=== PATIENT | female | born 1950 | race Caucasian/White ===

== ENCOUNTER 2019-09-26 15:49 | Inpatient (IN) ==
[2019-09-26 16:46] LABS: Basophils % 0.3 %; Eosinophils % 0.1 %; Hematocrit 44.1 % (35.3-44.9); Hemoglobin 14.6 g/dL (11.5-15.4); Immature Granulocytes % 0.7 % (0-4); Lymphocytes # 0.7 K/mcL (0.6-4.6); Lymphocytes % 5.2 %; Mean Corpuscular HGB Conc 33.1 g/dL (31.6-35.5); Mean Corpuscular Hemoglobin 27.5 pg (28.0-33.3); Mean Corpuscular Volume 83.1 fL (83.0-100.0); Mean Platelet Volume 11.2 fL (9.4-12.4); Monocytes # 1.4 K/mcL (0.0-1.3); Monocytes % 10.5 %; Neutrophils # 11.3 K/mcL (1.6-8.9); Platelet Count 264 K/mcL (140-400); Red Blood Count 5.31 M/mcL (3.82-4.97); Red Cell Distribution Width 15.8 % (11.5-14.5); Segmented Neutrophils % 83.2 %; White Blood Count 13.6 K/mcL (4.3-11.1)
[2019-09-26 17:07] LABS: BUN/Creatinine Ratio 29 (6-26); Blood Urea Nitrogen 31 mg/dL (8-23); Calcium 9.3 mg/dL (8.6-10.3); Carbon Dioxide 21 mEq/L (23-29); Chloride 103 mEq/L (98-107); Creatine Kinase 165 Units/L (30-223); Glucose 88 mg/dL (70-105); Osmolality,Calculated 286 (280-300); Potassium 3.8 mEq/L (3.5-5.1); Sodium 135 mEq/L (136-145); eGFR For African Americans > 60 (> 60); eGFR For Non-African Americans 51 (> 60)
[2019-09-26] MEDS ORDERED: 0.9 % Sodium Chloride 1,000 ML IVC ONE (17:50)
[2019-09-26] MEDS ORDERED: Isovue-370 500 ML BOTTLE IVP ONE (19:06)
[2019-09-26 22:16] LABS: INR 1.8; Prothrombin Time 20.5 Seconds (9.4-12.1)
[2019-09-26] MEDS ORDERED: Heparin 25,000 UNIT/250 ML D5W 25,000 UNIT/250 ML IV.SOLN IVC SCH (23:45)
[2019-09-26] MEDS ORDERED: *HR* Heparin 5,000 UNIT/ML VIAL IVP ONE (23:49)
[2019-09-26] MEDS ORDERED: *HR* Heparin 5,000 UNIT/ML VIAL IVP PRN ×2 (23:49)
[2019-09-27] MEDS ORDERED: traMADol 50 MG TABLET PO ONE (00:58)
[2019-09-27] MEDS ORDERED: Ondansetron 4 MG/2 ML VIAL IVP PRN (00:58)
[2019-09-27] MEDS ORDERED: *HR* Warfarin 3 MG TABLET PO ONE (01:30)
[2019-09-27 04:20] LABS: Prothrombin Time 22.5 Seconds (9.4-12.1)
[2019-09-27] MEDS: Furosemide 40 MG TABLET PO SCH (07:56)
[2019-09-27] MEDS ORDERED: Diltiazem CD (24hr) 240 MG CAPSULE PO SCH (09:00)
[2019-09-27] MEDS ORDERED: *HR* Heparin 5,000 UNIT/ML VIAL IVP ONE (09:45)
[2019-09-27 10:26] LABS: Hematocrit 39.7 % (35.3-44.9); Mean Corpuscular Hemoglobin 27.5 pg (28.0-33.3); Mean Corpuscular Volume 86.1 fL (83.0-100.0); Mean Platelet Volume 11.1 fL (9.4-12.4); Platelet Count 248 K/mcL (140-400); Red Blood Count 4.61 M/mcL (3.82-4.97); Red Cell Distribution Width 15.9 % (11.5-14.5); White Blood Count 11.4 K/mcL (4.3-11.1)
[2019-09-27 10:27] LABS: Hemoglobin 12.7 g/dL (11.5-15.4)
[2019-09-27 10:32] LABS: INR 1.9; Prothrombin Time 21.9 Seconds (9.4-12.1)
[2019-09-27 10:34] LABS: Heparin anti-factor XA UFH 0.49 IU/mL (0.30-0.70); INR 1.9; Prothrombin Time 21.4 Seconds (9.4-12.1)
[2019-09-27] MEDS ORDERED: cefTRIAXone 1,000 MG in Water for inj. (sterile) 10 ML IVP SCH (13:31)
[2019-09-27 14:13] LABS: Source,Synovial Fluid LEFT KNEE
[2019-09-27 15:20] LABS: Color,Synovial Fluid Amber (Straw)
[2019-09-27 15:21] LABS: Appearance,Synovial Fluid Hazy (Clear-Hazy)
[2019-09-27] MEDS: Heparin 25,000 UNIT/250 ML D5W 25,000 UNIT/250 ML IV.SOLN IVC SCH (15:21)
[2019-09-27] MEDS ORDERED: *HR* Warfarin 5 MG TABLET PO ONE (18:00)
[2019-09-27] MEDS ORDERED: Warfarin perPT PO PRN (18:00)
[2019-09-28 01:16] LABS: Prothrombin Time 22.7 Seconds (9.4-12.1)
[2019-09-28] MEDS: Acetaminophen 325 MG TABLET PO PRN (02:59)
[2019-09-28] MEDS: Heparin 25,000 UNIT/250 ML D5W 25,000 UNIT/250 ML IV.SOLN IVC SCH ×2 (06:03→21:32)
[2019-09-28] MEDS: cefTRIAXone 2,000 MG in Water for inj. (sterile) 20 ML IVP SCH (08:18)
[2019-09-28] MEDS: Furosemide 40 MG TABLET PO SCH (08:18)
[2019-09-28 09:01] LABS: Basophils # 0.1 K/mcL (0.0-0.2); Basophils % 0.5 %; Eosinophils # 0.1 K/mcL (0.0-0.6); Eosinophils % 0.4 %; Hematocrit 38.7 % (35.3-44.9); Immature Granulocytes % 1.5 % (0-4); Lymphocytes % 7.7 %; Mean Corpuscular HGB Conc 33.6 g/dL (31.6-35.5); Mean Corpuscular Volume 83.4 fL (83.0-100.0); Monocytes # 1.4 K/mcL (0.0-1.3); Monocytes % 11.3 %; Neutrophils # 9.8 K/mcL (1.6-8.9); Platelet Count 262 K/mcL (140-400); Red Blood Count 4.64 M/mcL (3.82-4.97); Red Cell Distribution Width 15.9 % (11.5-14.5); Segmented Neutrophils % 78.6 %; White Blood Count 12.5 K/mcL (4.3-11.1)
[2019-09-28 09:25] LABS: BUN/Creatinine Ratio 22 (6-26); Blood Urea Nitrogen 19 mg/dL (8-23); Calcium 8.6 mg/dL (8.6-10.3); Carbon Dioxide 24 mEq/L (23-29); Chloride 103 mEq/L (98-107); Glucose 93 mg/dL (70-105); Osmolality,Calculated 282 (280-300); Potassium 3.4 mEq/L (3.5-5.1); Sodium 135 mEq/L (136-145); eGFR For African Americans > 60 (> 60); eGFR For Non-African Americans > 60 (> 60)
[2019-09-28] MEDS ORDERED: Diltiazem CD (24hr) 240 MG CAPSULE PO SCH (13:28)
[2019-09-28] MEDS ORDERED: *HR* Warfarin 5 MG TABLET PO ONE ×2 (18:00)
[2019-09-29] MEDS: Acetaminophen 325 MG TABLET PO PRN ×3 (03:08→20:35)
[2019-09-29 05:13] LABS: Basophils # 0.1 K/mcL (0.0-0.2); Basophils % 0.6 %; Eosinophils % 0.2 %; Hematocrit 36.6 % (35.3-44.9); Hemoglobin 12.3 g/dL (11.5-15.4); Immature Granulocytes % 2.1 % (0-4); Lymphocytes # 1.4 K/mcL (0.6-4.6); Lymphocytes % 9.6 %; Mean Corpuscular HGB Conc 33.6 g/dL (31.6-35.5); Mean Corpuscular Hemoglobin 27.8 pg (28.0-33.3); Mean Corpuscular Volume 82.6 fL (83.0-100.0); Mean Platelet Volume 11.8 fL (9.4-12.4); Monocytes # 1.5 K/mcL (0.0-1.3); Monocytes % 10.6 %; Neutrophils # 11.2 K/mcL (1.6-8.9); Platelet Count 276 K/mcL (140-400); Red Blood Count 4.43 M/mcL (3.82-4.97); Red Cell Distribution Width 15.8 % (11.5-14.5); Segmented Neutrophils % 76.9 %; White Blood Count 14.5 K/mcL (4.3-11.1)
[2019-09-29 05:16] LABS: INR 1.7; Prothrombin Time 19.6 Seconds (9.4-12.1)
[2019-09-29] MEDS ORDERED: *HR* Heparin 5,000 UNIT/ML VIAL IVP PRN ×2 (05:28)
[2019-09-29 05:34] LABS: BUN/Creatinine Ratio 22 (6-26); Blood Urea Nitrogen 18 mg/dL (8-23); Calcium 8.4 mg/dL (8.6-10.3); Carbon Dioxide 22 mEq/L (23-29); Chloride 103 mEq/L (98-107); Glucose 92 mg/dL (70-105); Osmolality,Calculated 280 (280-300); Potassium 3.6 mEq/L (3.5-5.1); Sodium 134 mEq/L (136-145); eGFR For African Americans > 60 (> 60); eGFR For Non-African Americans > 60 (> 60)
[2019-09-29] MEDS: Heparin 25,000 UNIT/250 ML D5W 25,000 UNIT/250 ML IV.SOLN IVC SCH ×2 (06:10→17:30)
[2019-09-29 06:46] LABS: Hematocrit 36.2 % (35.3-44.9); Hemoglobin 12.2 g/dL (11.5-15.4); Immature Platelets 6.7 % (1.1-6.1); Mean Corpuscular HGB Conc 33.7 g/dL (31.6-35.5); Mean Corpuscular Hemoglobin 27.8 pg (28.0-33.3); Mean Corpuscular Volume 82.5 fL (83.0-100.0); Mean Platelet Volume 11.3 fL (9.4-12.4); Red Blood Count 4.39 M/mcL (3.82-4.97); Red Cell Distribution Width 15.8 % (11.5-14.5); White Blood Count 13.5 K/mcL (4.3-11.1)
[2019-09-29] MEDS: cefTRIAXone 2,000 MG in Water for inj. (sterile) 20 ML IVP SCH (09:36)
[2019-09-29] MEDS: Furosemide 40 MG TABLET PO SCH (09:36)
[2019-09-29] MEDS: Diltiazem CD (24hr) 180 MG CAPSULE PO SCH (09:37)
[2019-09-29] MEDS ORDERED: *HR* Warfarin 4 MG TABLET PO SCH (18:00)
[2019-09-30 02:52] LABS: Basophils # 0.1 K/mcL (0.0-0.2); Basophils % 0.7 %; Eosinophils # 0.2 K/mcL (0.0-0.6); Eosinophils % 1.2 %; Hematocrit 40.4 % (35.3-44.9); Hemoglobin 13.1 g/dL (11.5-15.4); Immature Granulocytes % 3.2 % (0-4); Lymphocytes # 1.3 K/mcL (0.6-4.6); Lymphocytes % 10.2 %; Mean Corpuscular HGB Conc 32.4 g/dL (31.6-35.5); Mean Corpuscular Hemoglobin 27.3 pg (28.0-33.3); Mean Corpuscular Volume 84.2 fL (83.0-100.0); Mean Platelet Volume 13.4 fL (9.4-12.4); Monocytes # 1.3 K/mcL (0.0-1.3); Monocytes % 9.9 %; Neutrophils # 9.7 K/mcL (1.6-8.9); Platelet Count 189 K/mcL (140-400); Red Cell Distribution Width 15.9 % (11.5-14.5); Segmented Neutrophils % 74.8 %; White Blood Count 12.9 K/mcL (4.3-11.1)
[2019-09-30 02:59] LABS: INR 1.8
[2019-09-30 03:13] LABS: BUN/Creatinine Ratio 23 (6-26); Blood Urea Nitrogen 19 mg/dL (8-23); Calcium 8.6 mg/dL (8.6-10.3); Carbon Dioxide 23 mEq/L (23-29); Chloride 105 mEq/L (98-107); Glucose 92 mg/dL (70-105); Osmolality,Calculated 284 (280-300); Potassium 3.7 mEq/L (3.5-5.1); Sodium 136 mEq/L (136-145); eGFR For African Americans > 60 (> 60); eGFR For Non-African Americans > 60 (> 60)
[2019-09-30] MEDS: Heparin 25,000 UNIT/250 ML D5W 25,000 UNIT/250 ML IV.SOLN IVC SCH ×3 (05:21→22:04)
[2019-09-30] MEDS: Furosemide 40 MG TABLET PO SCH (08:35)
[2019-09-30] MEDS: Acetaminophen 325 MG TABLET PO PRN ×2 (08:35→18:04)
[2019-09-30] MEDS: Diltiazem CD (24hr) 180 MG CAPSULE PO SCH (08:35)
[2019-09-30] MEDS: cefTRIAXone 2,000 MG in Water for inj. (sterile) 20 ML IVP SCH (08:36)
[2019-09-30] MEDS ORDERED: *HR* Warfarin 3 MG TABLET PO ONE (18:00)
[2019-09-30] MEDS ORDERED: Acetaminophen IV 1,000 MG/100 ML INFUS..BTL IVPB ONE (22:03)
[2019-09-30] MEDS ORDERED: Aminoglycoside Consult 1 EACH MC ONE (22:45)
[2019-10-01 02:38] LABS: BUN/Creatinine Ratio 25 (6-26); Blood Urea Nitrogen 20 mg/dL (8-23); Calcium 8.6 mg/dL (8.6-10.3); Carbon Dioxide 25 mEq/L (23-29); Chloride 105 mEq/L (98-107); Glucose 113 mg/dL (70-105); Osmolality,Calculated 289 (280-300); Potassium 3.6 mEq/L (3.5-5.1); Sodium 138 mEq/L (136-145); eGFR For African Americans > 60 (> 60); eGFR For Non-African Americans > 60 (> 60)
[2019-10-01 02:52] LABS: INR 2.5; Prothrombin Time 28.3 Seconds (9.4-12.1)
[2019-10-01 04:07] LABS: Basophils # 0.1 K/mcL (0.0-0.2); Basophils % 0.7 %; Eosinophils # 0.2 K/mcL (0.0-0.6); Eosinophils % 1.8 %; Hemoglobin 12.4 g/dL (11.5-15.4); Lymphocytes # 1.6 K/mcL (0.6-4.6); Lymphocytes % 14.7 %; Mean Corpuscular HGB Conc 33.5 g/dL (31.6-35.5); Mean Corpuscular Hemoglobin 27.6 pg (28.0-33.3); Mean Corpuscular Volume 82.2 fL (83.0-100.0); Mean Platelet Volume 12.2 fL (9.4-12.4); Monocytes # 1.1 K/mcL (0.0-1.3); Monocytes % 9.8 %; Neutrophils # 7.7 K/mcL (1.6-8.9); Platelet Count 336 K/mcL (140-400); Red Cell Distribution Width 15.7 % (11.5-14.5); White Blood Count 11.2 K/mcL (4.3-11.1)
[2019-10-01 04:44] LABS: Platelet Estimate Normal (Normal)
[2019-10-01] MEDS: Heparin 25,000 UNIT/250 ML D5W 25,000 UNIT/250 ML IV.SOLN IVC SCH (05:22)
[2019-10-01] MEDS ORDERED: Acetaminophen IV 1,000 MG/100 ML INFUS..BTL IVPB ONE ×3 (08:09→18:30)
[2019-10-01] MEDS: cefTRIAXone 2,000 MG in Water for inj. (sterile) 20 ML IVP SCH (09:26)
[2019-10-01] MEDS: Diltiazem CD (24hr) 180 MG CAPSULE PO SCH (09:27)
[2019-10-01] MEDS: Furosemide 40 MG TABLET PO SCH (09:28)
[2019-10-01] MEDS ORDERED: *HR* Warfarin 2.5 MG TABLET PO ONE (18:00)
[2019-10-01 20:41] VITALS: BP 106/71
== END 2019-10-01 22:46 | disposition short-term general hospital (02) | DRG 560 ==
LOC: EMEROOARM 15:49 → 2NENU 15:49 → SUATTDRO 23:50 → 2NENU 09-27 00:58 → SUATTDRO 09-27 14:19
PROVIDERS: ADMIT Internal Medicine; ATTEND Family Medicine

== ENCOUNTER 2020-08-07 10:36 | Inpatient (IN) ==
[2020-08-07 11:11] LABS: Basophils % 0.4 %; Eosinophils # 0.4 K/mcL (0.0-0.6); Eosinophils % 4.3 %; Hematocrit 25.4 % (35.3-44.9); Hemoglobin 7.1 g/dL (11.5-15.4); Immature Granulocytes % 1.1 % (0-4); Lymphocytes % 10.6 %; Mean Corpuscular Hemoglobin 20.4 pg (28.0-33.3); Mean Platelet Volume 9.7 fL (9.4-12.4); Monocytes # 0.7 K/mcL (0.0-1.3); Monocytes % 7.6 %; Platelet Count 348 K/mcL (140-400); Red Blood Count 3.48 M/mcL (3.82-4.97); Red Cell Distribution Width 20.6 % (11.5-14.5); White Blood Count 9.7 K/mcL (4.3-11.1)
[2020-08-07 11:15] LABS: Neutrophils # 7.4 K/mcL (1.6-8.9)
[2020-08-07 11:25] LABS: INR 2.8; Prothrombin Time 31.3 Seconds (9.4-12.1)
[2020-08-07 11:31] LABS: Alanine Aminotransferase 8 Units/L (7-52); Albumin 3.3 g/dL (3.5-5.7); Alkaline Phosphatase 69 Units/L (34-104); Aspartate Amino Transferase 14 Units/L (13-39); BUN/Creatinine Ratio 19 (6-26); Bilirubin,Indirect 0.6 mg/dL (0.0-1.0); Bilirubin,Total 0.6 mg/dL (0.3-1.0); Blood Urea Nitrogen 18 mg/dL (8-23); Calcium 8.8 mg/dL (8.6-10.3); Carbon Dioxide 30 mEq/L (23-29); Chloride 104 mEq/L (98-107); Globulin 3.3 g/dL (2.4-3.5); Glucose 115 mg/dL (70-105); Osmolality,Calculated 293 (280-300); Potassium 3.6 mEq/L (3.5-5.1); Sodium 140 mEq/L (136-145); Total Protein 6.6 g/dL (6.4-8.9); Troponin I < 0.03 ng/mL (< 0.04); eGFR For African Americans > 60 (> 60); eGFR For Non-African Americans 59 (> 60)
[2020-08-07 11:34] LABS: Anisocytosis 1+ (Not Present); Hypochromasia Present (Not Present); Polychromasia 1+ (Not Present)
[2020-08-07 11:35] LABS: Large Platelets Present (Not Present); Platelet Estimate Normal (Normal)
[2020-08-07 11:36] LABS: Macrocytosis Present (Not Present); Microcytosis Present (Not Present)
[2020-08-07] MEDS ORDERED: Naloxone 0.4 MG/ML INJ IVP PRN (13:40)
[2020-08-07] MEDS ORDERED: Ondansetron ODT 4 MG TAB.RAPDIS SL PRN (13:50)
[2020-08-07] MEDS ORDERED: *HR* Labetalol 20 MG/4 ML SYRINGE IVP ONE (14:05)
[2020-08-07] MEDS ORDERED: 0.9 % Sodium Chloride 500 ML ONE (14:53)
[2020-08-07] MEDS ORDERED: 0.9 % Sodium Chloride 1,000 ML IV ONE (15:49)
[2020-08-07] MEDS ORDERED: Vancomycin 2,000 MG/520 ML IV.SOLN IVPB ONE (16:30)
[2020-08-07] MEDS ORDERED: 0.9 % Sodium Chloride 250 ML IVC SCH (17:15)
[2020-08-07] MEDS: Piperacillin/Tazobactam 3.375 GM in 0.9 % Sodium Chloride Mini Bag 100 ML IVPB SCH (17:48)
[2020-08-07 18:51] LABS: Hematocrit 26.9 % (35.3-44.9); Hemoglobin 7.5 g/dL (11.5-15.4)
[2020-08-07] MEDS: Acetaminophen 325 MG TABLET PO PRN (19:56)
[2020-08-08 00:44] LABS: INR 2.4; Prothrombin Time 27.1 Seconds (9.4-12.1)
[2020-08-08 00:45] LABS: Red Cell Distribution Width 20.3 % (11.5-14.5)
[2020-08-08 00:46] LABS: Hematocrit 28.3 % (35.3-44.9); Mean Corpuscular HGB Conc 28.3 g/dL (31.6-35.5); Mean Corpuscular Hemoglobin 20.9 pg (28.0-33.3); Mean Corpuscular Volume 73.9 fL (83.0-100.0); Platelet Count 324 K/mcL (140-400); Red Blood Count 3.83 M/mcL (3.82-4.97); White Blood Count 8.5 K/mcL (4.3-11.1)
[2020-08-08 00:47] LABS: Activated Partial Thrombo Time 33.3 Seconds (26.0-36.0)
[2020-08-08 01:07] LABS: BUN/Creatinine Ratio 19 (6-26); Blood Urea Nitrogen 16 mg/dL (8-23); Calcium 8.2 mg/dL (8.6-10.3); Carbon Dioxide 27 mEq/L (23-29); Chloride 107 mEq/L (98-107); Glucose 142 mg/dL (70-105); Osmolality,Calculated 296 (280-300); Potassium 3.4 mEq/L (3.5-5.1); Sodium 141 mEq/L (136-145); eGFR For African Americans > 60 (> 60); eGFR For Non-African Americans > 60 (> 60)
[2020-08-08] MEDS: Piperacillin/Tazobactam 3.375 GM in 0.9 % Sodium Chloride Mini Bag 100 ML IVPB SCH ×2 (03:15→08:25)
[2020-08-08] MEDS: Acetaminophen 325 MG TABLET PO PRN ×2 (04:51→13:15)
[2020-08-08] MEDS ORDERED: Vancomycin 2,000 MG/520 ML IV.SOLN IVPB SCH (05:00)
[2020-08-08] MEDS ORDERED: DilTIAZem CD (24hr) 240 MG CAP.ER.24H PO SCH (09:00)
[2020-08-08] MEDS ORDERED: CefTRIAXone 2,000 MG VIAL IVP SCH (12:00)
[2020-08-08] MEDS ORDERED: cefTRIAXone 2,000 MG in Water for inj. (sterile) 20 ML IVP SCH (13:00)
[2020-08-08] MEDS ORDERED: DAPTOmycin 500 MG VIAL IVP SCH (18:00)
[2020-08-08] MEDS ORDERED: DAPTOmycin 900 MG in 0.9 % Sodium Chloride 100 ML IVPB SCH (18:00)
[2020-08-08] MEDS ORDERED: *HR* Enoxaparin 30 MG/0.3 ML SYRINGE SQ ONE (18:00)
[2020-08-08] MEDS ORDERED: NON-FORMULARY MEDICATION 1 EACH EACH (Simvastatin [Zocor] 10 MG) PO SCH (18:00)
[2020-08-08] MEDS ORDERED: polyethylene glycoL 3350 17 GM POWD.PACK PO PRN (18:18)
[2020-08-08] MEDS: Sennosides/Docusate Sodium TABLET PO SCH (20:49)
[2020-08-09 02:48] LABS: Basophils % 0.3 %; Mean Platelet Volume 9.9 fL (9.4-12.4)
[2020-08-09 02:49] LABS: Eosinophils # 0.7 K/mcL (0.0-0.6); Eosinophils % 8.3 %; Hematocrit 30.1 % (35.3-44.9); Hemoglobin 8.6 g/dL (11.5-15.4); Immature Granulocytes % 0.7 % (0-4); Lymphocytes # 1.3 K/mcL (0.6-4.6); Lymphocytes % 14.5 %; Mean Corpuscular HGB Conc 28.6 g/dL (31.6-35.5); Mean Corpuscular Hemoglobin 21.1 pg (28.0-33.3); Monocytes # 0.7 K/mcL (0.0-1.3); Monocytes % 7.6 %; Neutrophils # 5.9 K/mcL (1.6-8.9); Nucleated Red Blood Cells 1.7 /100 WBC (0); Platelet Count 338 K/mcL (140-400); Red Blood Count 4.07 M/mcL (3.82-4.97); Red Cell Distribution Width 20.5 % (11.5-14.5); Segmented Neutrophils % 68.6 %; White Blood Count 8.6 K/mcL (4.3-11.1)
[2020-08-09 03:10] LABS: % Iron Saturation 4 % (15-50); BUN/Creatinine Ratio 19 (6-26); Blood Urea Nitrogen 15 mg/dL (8-23); Calcium 8.7 mg/dL (8.6-10.3); Carbon Dioxide 26 mEq/L (23-29); Chloride 108 mEq/L (98-107); Glucose 96 mg/dL (70-105); Iron 19 mcg/dL (50-170); Osmolality,Calculated 291 (280-300); Potassium 3.6 mEq/L (3.5-5.1); Sodium 140 mEq/L (136-145); Transferrin 332 mg/dL (203-362); eGFR For African Americans > 60 (> 60); eGFR For Non-African Americans > 60 (> 60)
[2020-08-09 03:29] LABS: Ferritin 10 ng/mL (10-120)
[2020-08-09 03:36] LABS: Hypochromasia Present (Not Present); Polychromasia 1+ (Not Present)
[2020-08-09 03:37] LABS: Anisocytosis 2+ (Not Present); Large Platelets Present (Not Present); Platelet Estimate Normal (Normal); Poikilocytosis 1+ (Not Present)
[2020-08-09 07:42] VITALS: BP 119/77
[2020-08-09] MEDS ORDERED: *HR* Enoxaparin 150 MG/ML SYRINGE SQ SCH (08:00)
[2020-08-09] MEDS: Sennosides/Docusate Sodium TABLET PO SCH (08:40)
[2020-08-09 08:45] LABS: INR 1.8; Prothrombin Time 20.3 Seconds (9.4-12.1)
[2020-08-09] MEDS: Acetaminophen 325 MG TABLET PO PRN (08:48)
[2020-08-09] MEDS ORDERED: Loratadine 10 MG TABLET PO SCH (09:00)
[2020-08-09] MEDS ORDERED: Furosemide 40 MG TABLET PO SCH (09:00)
== END 2020-08-09 11:19 | DRG 811 ==
LOC: EMEROOARM 10:36 → 3BNU 10:36 → SUATTDRO 11:57 → 3BNU 12:25
PROVIDERS: ADMIT Internal Medicine; ATTEND Internal Medicine

== ENCOUNTER 2021-08-22 06:30 | Inpatient (IN) ==
[2021-08-22] MEDS ORDERED: Pantoprazole 80 MG in 0.9 % Sodium Chloride 50 ML IVPB ONE (06:47)
[2021-08-22] MEDS ORDERED: 0.9 % Sodium Chloride 500 ML ONE (06:51)
[2021-08-22 07:02] LABS: Basophils % 0.3 %; Eosinophils % 0.1 %; Hematocrit 29.5 % (35.3-44.9); Hemoglobin 8.4 g/dL (11.5-15.4); Immature Granulocytes % 0.8 % (0-4); Lymphocytes # 0.8 K/mcL (0.6-4.6); Lymphocytes % 7.3 %; Mean Corpuscular HGB Conc 28.5 g/dL (31.6-35.5); Mean Corpuscular Hemoglobin 20.9 pg (28.0-33.3); Mean Corpuscular Volume 73.6 fL (83.0-100.0); Mean Platelet Volume 9.7 fL (9.4-12.4); Nucleated Red Blood Cells 0.2 /100 WBC (0); Platelet Count 374 K/mcL (140-400); Red Blood Count 4.01 M/mcL (3.82-4.97); Red Cell Distribution Width 18.3 % (11.5-14.5); Segmented Neutrophils % 88.5 %; White Blood Count 11.5 K/mcL (4.3-11.1)
[2021-08-22 07:03] LABS: Monocytes # 0.4 K/mcL (0.0-1.3); Neutrophils # 10.2 K/mcL (1.6-8.9)
[2021-08-22 07:22] LABS: Potassium 4.9 mEq/L (3.5-5.1)
[2021-08-22 07:41] LABS: INR 5.8; Prothrombin Time 63.6 Seconds (9.4-12.1)
[2021-08-22] MEDS ORDERED: Pantoprazole 40 MG VIAL ONE (07:45)
[2021-08-22] MEDS: Pantoprazole 40 MG in 0.9 % Sodium Chloride Mini Bag 100 ML IVC SCH ×4 (07:54→22:36)
[2021-08-22] MEDS ORDERED: Naloxone 0.4 MG/ML INJ IVP PRN (08:40)
[2021-08-22] MEDS ORDERED: Octreotide 50 MCG/ML INJ IVP ONE (11:55)
[2021-08-22] MEDS ORDERED: Amiodarone Premix 360 MG/200 ML BAG IVC ONE (12:02)
[2021-08-22] MEDS ORDERED: Amiodarone Premix 150 MG/100 ML BAG IVPB ONE (12:02)
[2021-08-22 14:12] LABS: Hematocrit 33.3 % (35.3-44.9)
[2021-08-22 14:24] LABS: Alanine Aminotransferase 4 Units/L (7-52); Albumin 3.4 g/dL (3.5-5.7); Albumin/Globulin Ratio 1.2 (1.1-2.2); Alkaline Phosphatase 68 Units/L (34-104); Aspartate Amino Transferase 15 Units/L (13-39); BUN/Creatinine Ratio 50 (6-26); Bilirubin,Direct 0.1 mg/dL (0.0-0.2); Bilirubin,Indirect 0.6 mg/dL (0.0-1.0); Bilirubin,Total 0.7 mg/dL (0.3-1.0); Blood Urea Nitrogen 51 mg/dL (8-23); Calcium 8.9 mg/dL (8.6-10.3); Carbon Dioxide 22 mEq/L (23-29); Chloride 111 mEq/L (98-107); Globulin 2.8 g/dL (2.4-3.5); Glucose 90 mg/dL (70-105); INR 5.2; Osmolality,Calculated 305 (280-300); Potassium 4.6 mEq/L (3.5-5.1); Prothrombin Time 56.8 Seconds (9.4-12.1); Sodium 141 mEq/L (136-145); Total Protein 6.2 g/dL (6.4-8.9); eGFR For African Americans > 60 (> 60); eGFR For Non-African Americans 53 (> 60)
[2021-08-22] MEDS ORDERED: 0.9 % Sodium Chloride 250 ML ONE (14:57)
[2021-08-22] MEDS: Ondansetron 4 MG/2 ML VIAL IVP PRN (15:31)
[2021-08-22] MEDS: *HR* Metoprolol 5 MG/5 ML VIAL IVP PRN ×2 (16:05→23:59)
[2021-08-22] MEDS: Amiodarone Premix 360 MG/200 ML BAG IVC SCH (18:41)
[2021-08-22 19:41] LABS: Hematocrit 29.1 % (35.3-44.9); Hemoglobin 8.6 g/dL (11.5-15.4)
[2021-08-22 19:49] LABS: INR 3.1; Prothrombin Time 33.8 Seconds (9.4-12.1)
[2021-08-23 02:45] LABS: Hematocrit 29.8 % (35.3-44.9); Hemoglobin 8.8 g/dL (11.5-15.4)
[2021-08-23 02:54] LABS: INR 3.4; Prothrombin Time 38.1 Seconds (9.4-12.1)
[2021-08-23 02:55] LABS: Alanine Aminotransferase 5 Units/L (7-52); Albumin 3.4 g/dL (3.5-5.7); Albumin/Globulin Ratio 1.4 (1.1-2.2); Alkaline Phosphatase 65 Units/L (34-104); Aspartate Amino Transferase 14 Units/L (13-39); BUN/Creatinine Ratio 44 (6-26); Bilirubin,Direct 0.1 mg/dL (0.0-0.2); Bilirubin,Indirect 0.5 mg/dL (0.0-1.0); Bilirubin,Total 0.6 mg/dL (0.3-1.0); Blood Urea Nitrogen 42 mg/dL (8-23); Calcium 8.6 mg/dL (8.6-10.3); Carbon Dioxide 24 mEq/L (23-29); Chloride 113 mEq/L (98-107); Globulin 2.5 g/dL (2.4-3.5); Glucose 87 mg/dL (70-105); Osmolality,Calculated 306 (280-300); Sodium 143 mEq/L (136-145); Total Protein 5.9 g/dL (6.4-8.9); eGFR For African Americans > 60 (> 60); eGFR For Non-African Americans 57 (> 60)
[2021-08-23 04:23] LABS: Magnesium 1.9 mg/dL (1.6-2.6); Phosphorous 2.9 mg/dL (2.7-4.5)
[2021-08-23] MEDS: Pantoprazole 40 MG in 0.9 % Sodium Chloride Mini Bag 100 ML IVC SCH ×4 (04:29→20:02)
[2021-08-23 05:48] LABS: Basophils % 0.4 %; Eosinophils # 0.2 K/mcL (0.0-0.6); Eosinophils % 1.9 %; Hematocrit 29.8 % (35.3-44.9); Hemoglobin 8.8 g/dL (11.5-15.4); Immature Granulocytes % 0.5 % (0-4); Lymphocytes # 1.3 K/mcL (0.6-4.6); Lymphocytes % 13.3 %; Mean Corpuscular HGB Conc 29.5 g/dL (31.6-35.5); Mean Corpuscular Hemoglobin 23.6 pg (28.0-33.3); Mean Corpuscular Volume 79.9 fL (83.0-100.0); Mean Platelet Volume 10.2 fL (9.4-12.4); Monocytes # 0.9 K/mcL (0.0-1.3); Monocytes % 8.8 %; Neutrophils # 7.2 K/mcL (1.6-8.9); Platelet Count 295 K/mcL (140-400); Red Blood Count 3.73 M/mcL (3.82-4.97); Red Cell Distribution Width 21.1 % (11.5-14.5); Segmented Neutrophils % 75.1 %; White Blood Count 9.6 K/mcL (4.3-11.1)
[2021-08-23] MEDS: Amiodarone Premix 360 MG/200 ML BAG IVC SCH ×3 (06:08→20:01)
[2021-08-23] MEDS: Ondansetron 4 MG/2 ML VIAL IVP PRN (09:28)
[2021-08-23 10:18] LABS: Hematocrit 30.1 % (35.3-44.9)
[2021-08-23] MEDS ORDERED: D5% in 0.45% NACL 1,000 ML IVC SCH ×2 (12:15→13:21)
[2021-08-23] MEDS ORDERED: Ondansetron 4 MG/2 ML VIAL IVP PRN (13:21)
[2021-08-23] MEDS ORDERED: *HR* Metoprolol 5 MG/5 ML VIAL IVP PRN (13:21)
[2021-08-23] MEDS ORDERED: Naloxone 0.4 MG/ML INJ IVP PRN (13:21)
[2021-08-23] MEDS ORDERED: Lidocaine -MPF 2% 5 ML VIAL SQ ONE (14:26)
[2021-08-23] MEDS ORDERED: *HR* Propofol 200 MG/20 ML VIAL IVP ONE (14:26)
[2021-08-23 17:38] LABS: Hematocrit 26.8 % (35.3-44.9); Hemoglobin 8.3 g/dL (11.5-15.4)
[2021-08-24 01:39] LABS: Basophils % 0.2 %; Eosinophils # 0.3 K/mcL (0.0-0.6); Eosinophils % 3.4 %; Hematocrit 28.6 % (35.3-44.9); Hemoglobin 8.3 g/dL (11.5-15.4); Immature Granulocytes % 0.4 % (0-4); Lymphocytes # 0.9 K/mcL (0.6-4.6); Lymphocytes % 10.4 %; Mean Corpuscular Hemoglobin 22.9 pg (28.0-33.3); Mean Platelet Volume 10.2 fL (9.4-12.4); Monocytes # 0.6 K/mcL (0.0-1.3); Monocytes % 7.4 %; Neutrophils # 6.6 K/mcL (1.6-8.9); Platelet Count 278 K/mcL (140-400); Red Blood Count 3.62 M/mcL (3.82-4.97); Red Cell Distribution Width 20.9 % (11.5-14.5); Segmented Neutrophils % 78.2 %; White Blood Count 8.5 K/mcL (4.3-11.1)
[2021-08-24] MEDS ORDERED: Morphine Sulfate 2 MG/ML SYRINGE IVP PRN (01:54)
[2021-08-24 02:02] LABS: Alanine Aminotransferase 6 Units/L (7-52); Albumin 3.2 g/dL (3.5-5.7); Albumin/Globulin Ratio 1.3 (1.1-2.2); Alkaline Phosphatase 61 Units/L (34-104); Aspartate Amino Transferase 14 Units/L (13-39); BUN/Creatinine Ratio 32 (6-26); Bilirubin,Direct 0.2 mg/dL (0.0-0.2); Bilirubin,Indirect 0.5 mg/dL (0.0-1.0); Bilirubin,Total 0.7 mg/dL (0.3-1.0); Blood Urea Nitrogen 24 mg/dL (8-23); Calcium 8.4 mg/dL (8.6-10.3); Carbon Dioxide 24 mEq/L (23-29); Chloride 111 mEq/L (98-107); Globulin 2.4 g/dL (2.4-3.5); Glucose 77 mg/dL (70-105); Osmolality,Calculated 297 (280-300); Potassium 3.8 mEq/L (3.5-5.1); Sodium 142 mEq/L (136-145); Total Protein 5.6 g/dL (6.4-8.9); eGFR For African Americans > 60 (> 60); eGFR For Non-African Americans > 60 (> 60)
[2021-08-24] MEDS: Pantoprazole 40 MG in 0.9 % Sodium Chloride Mini Bag 100 ML IVC SCH ×4 (02:57→20:28)
[2021-08-24 03:49] LABS: Bacteria,Urine Few per hpf (None-Few); Bilirubin,Urine Negative (Negative); Blood,Urine Large (Negative); Clarity,Urine Turbid (Clear); Color,Urine Light-Orange (Yellow); Glucose,Urine (UA) Normal (Normal); Ketones,Urine Trace mg/dL (Negative); Leukocyte Esterase,Urine Large (Negative); Mucus,Urine Few per lpf (None-Few); Nitrite,Urine Positive (Negative); PH,Urine 8.5 pH Units (5.0-8.0); Protein,Urine 100 mg/dL (Neg-Trace); RBC,Urine TNTC per hpf (0-3); Specific Gravity,Urine 1.026 (1.010-1.025); Squamous Epithelial Cell,Urine Few per hpf (None-Few); Urobilinogen,Urine Normal (Normal); WBC,Urine 50-100 per hpf (0-3)
[2021-08-24] MEDS: Ertapenem 1,000 MG in 0.9 % Sodium Chloride Mini Bag 100 ML IVPB SCH (06:52)
[2021-08-24 07:02] LABS: Hematocrit 27.6 % (35.3-44.9); Hemoglobin 8.2 g/dL (11.5-15.4)
[2021-08-24] MEDS: Amiodarone Premix 360 MG/200 ML BAG IVC SCH (10:13)
[2021-08-24 10:19] LABS: INR 3.9
[2021-08-24] MEDS ORDERED: *HR* Enoxaparin 120 MG/0.8 ML SYRINGE SQ SCH (10:30)
[2021-08-24] MEDS: DilTIAZem CD (24hr) 240 MG CAP.ER.24H PO SCH (11:18)
[2021-08-24] MEDS ORDERED: Nitroglycerin 0.4 MG TAB.SUBL SL PRN (14:10)
[2021-08-24] MEDS ORDERED: Warfarin perPT PO PRN (18:00)
[2021-08-24] MEDS: Doxycycline 100 MG CAPSULE PO SCH (20:08)
[2021-08-25] MEDS: Pantoprazole 40 MG in 0.9 % Sodium Chloride Mini Bag 100 ML IVC SCH ×5 (00:38→11:03)
[2021-08-25] MEDS: Ertapenem 1,000 MG in 0.9 % Sodium Chloride Mini Bag 100 ML IVPB SCH (05:47)
[2021-08-25 06:23] LABS: Basophils % 0.3 %; Eosinophils # 0.3 K/mcL (0.0-0.6); Eosinophils % 5.2 %; Hematocrit 29.6 % (35.3-44.9); Hemoglobin 8.8 g/dL (11.5-15.4); Immature Granulocytes % 0.3 % (0-4); Lymphocytes # 0.9 K/mcL (0.6-4.6); Lymphocytes % 14.6 %; Mean Corpuscular HGB Conc 29.7 g/dL (31.6-35.5); Mean Corpuscular Hemoglobin 23.3 pg (28.0-33.3); Mean Corpuscular Volume 78.5 fL (83.0-100.0); Monocytes # 0.6 K/mcL (0.0-1.3); Monocytes % 9.3 %; Neutrophils # 4.5 K/mcL (1.6-8.9); Platelet Count 307 K/mcL (140-400); Red Blood Count 3.77 M/mcL (3.82-4.97); Red Cell Distribution Width 20.7 % (11.5-14.5); Segmented Neutrophils % 70.3 %; White Blood Count 6.4 K/mcL (4.3-11.1)
[2021-08-25 06:29] LABS: INR 2.9; Prothrombin Time 32.2 Seconds (9.4-12.1)
[2021-08-25 06:44] LABS: Alanine Aminotransferase 7 Units/L (7-52); Albumin 3.5 g/dL (3.5-5.7); Albumin/Globulin Ratio 1.3 (1.1-2.2); Alkaline Phosphatase 75 Units/L (34-104); Aspartate Amino Transferase 17 Units/L (13-39); BUN/Creatinine Ratio 21 (6-26); Blood Urea Nitrogen 17 mg/dL (8-23); Calcium 8.8 mg/dL (8.6-10.3); Carbon Dioxide 24 mEq/L (23-29); Chloride 109 mEq/L (98-107); Globulin 2.7 g/dL (2.4-3.5); Glucose 89 mg/dL (70-105); Osmolality,Calculated 291 (280-300); Potassium 3.8 mEq/L (3.5-5.1); Sodium 140 mEq/L (136-145); Total Protein 6.2 g/dL (6.4-8.9); eGFR For African Americans > 60 (> 60); eGFR For Non-African Americans > 60 (> 60)
[2021-08-25] MEDS: Furosemide 40 MG TABLET PO SCH (07:23)
[2021-08-25] MEDS: DilTIAZem CD (24hr) 240 MG CAP.ER.24H PO SCH (07:23)
[2021-08-25] MEDS: Doxycycline 100 MG CAPSULE PO SCH ×2 (07:23→20:34)
[2021-08-25] MEDS ORDERED: *HR* Warfarin 3 MG TABLET PO ONE (18:00)
[2021-08-26] MEDS: Doxycycline 100 MG CAPSULE PO SCH (08:58)
[2021-08-26] MEDS: DilTIAZem CD (24hr) 240 MG CAP.ER.24H PO SCH (08:58)
[2021-08-26] MEDS: Furosemide 40 MG TABLET PO SCH (08:59)
[2021-08-26] MEDS: Ertapenem 1,000 MG in 0.9 % Sodium Chloride Mini Bag 100 ML IVPB SCH (08:59)
[2021-08-26] MEDS ORDERED: Sennosides/Docusate Sodium TABLET PO ONE (09:10)
[2021-08-26 09:55] LABS: Basophils % 0.5 %; Eosinophils # 0.3 K/mcL (0.0-0.6); Eosinophils % 4.7 %; Hematocrit 26.7 % (35.3-44.9); Hemoglobin 7.8 g/dL (11.5-15.4); Immature Granulocytes % 0.4 % (0-4); Lymphocytes # 0.8 K/mcL (0.6-4.6); Lymphocytes % 14.8 %; Mean Corpuscular HGB Conc 29.2 g/dL (31.6-35.5); Mean Corpuscular Hemoglobin 22.5 pg (28.0-33.3); Mean Corpuscular Volume 77.2 fL (83.0-100.0); Mean Platelet Volume 9.7 fL (9.4-12.4); Monocytes # 0.4 K/mcL (0.0-1.3); Neutrophils # 3.9 K/mcL (1.6-8.9); Platelet Count 287 K/mcL (140-400); Red Blood Count 3.46 M/mcL (3.82-4.97); Red Cell Distribution Width 20.6 % (11.5-14.5); Segmented Neutrophils % 71.6 %; White Blood Count 5.5 K/mcL (4.3-11.1)
[2021-08-26 10:02] LABS: INR 2.9; Prothrombin Time 32.1 Seconds (9.4-12.1)
[2021-08-26 10:19] LABS: Alanine Aminotransferase 8 Units/L (7-52); Albumin 3.1 g/dL (3.5-5.7); Albumin/Globulin Ratio 1.3 (1.1-2.2); Alkaline Phosphatase 67 Units/L (34-104); Aspartate Amino Transferase 14 Units/L (13-39); BUN/Creatinine Ratio 19 (6-26); Bilirubin,Total 0.6 mg/dL (0.3-1.0); Blood Urea Nitrogen 16 mg/dL (8-23); Calcium 7.7 mg/dL (8.6-10.3); Carbon Dioxide 26 mEq/L (23-29); Chloride 109 mEq/L (98-107); Globulin 2.4 g/dL (2.4-3.5); Glucose 119 mg/dL (70-105); Osmolality,Calculated 304 (280-300); Potassium 3.3 mEq/L (3.5-5.1); Sodium 146 mEq/L (136-145); Total Protein 5.5 g/dL (6.4-8.9); eGFR For African Americans > 60 (> 60); eGFR For Non-African Americans > 60 (> 60)
[2021-08-26 11:10] VITALS: BP 112/69; PULSE 82; TEMP 97.3; O2SAT 96
[2021-08-26] MEDS ORDERED: Potassium Chloride Elixir 20 MEQ/15 ML UDC PO ONE (11:23)
[2021-08-26] MEDS ORDERED: *HR* Warfarin 2 MG TABLET PO ONE ×2 (18:00)
== END 2021-08-26 14:27 | disposition home or self-care (01) | DRG 377 ==
LOC: EMEROOARM 06:30 → ICNU 10:09 → SUATTDRO 10:09 → ICNU 11:41 → 3NENU 08-23 16:56
PROVIDERS: ADMIT Pediatrics; ATTEND Internal Medicine

== ENCOUNTER 2022-03-08 11:45 | Inpatient (IN) ==
[2022-03-08] MEDS ORDERED: Piperacillin/Tazobactam 3.375 GM in 0.9 % Sodium Chloride Mini Bag 100 ML IVPB ONE (11:55)
[2022-03-08] MEDS ORDERED: 0.9 % Sodium Chloride 1,000 ML ONE (11:59)
[2022-03-08 12:42] LABS: Hemoglobin 7.9 g/dL (11.5-15.4); Nucleated Red Blood Cells 0.6 /100 WBC (0); Red Cell Distribution Width 24.8 % (11.5-14.5)
[2022-03-08 12:44] LABS: Basophils % 0.4 %; Eosinophils # 0.3 K/mcL (0.0-0.6); Eosinophils % 2.9 %; Hematocrit 32.2 % (35.3-44.9); Immature Granulocytes % 0.6 % (0-4); Lymphocytes # 0.6 K/mcL (0.6-4.6); Lymphocytes % 6.8 %; Mean Corpuscular HGB Conc 24.5 g/dL (31.6-35.5); Mean Corpuscular Hemoglobin 15.8 pg (28.0-33.3); Mean Corpuscular Volume 64.3 fL (83.0-100.0); Mean Platelet Volume 9.6 fL (9.4-12.4); Monocytes # 0.6 K/mcL (0.0-1.3); Monocytes % 7.3 %; Platelet Count 393 K/mcL (140-400); Red Blood Count 5.01 M/mcL (3.82-4.97); White Blood Count 8.5 K/mcL (4.3-11.1)
[2022-03-08 12:58] LABS: Anisocytosis 1+ (Not Present); Hypochromasia Present (Not Present); Platelet Estimate Normal (Normal); Poikilocytosis 1+ (Not Present)
[2022-03-08 13:04] LABS: BUN/Creatinine Ratio 13 (6-26); Blood Urea Nitrogen 11 mg/dL (8-23); Carbon Dioxide 27 mEq/L (23-29); Chloride 106 mEq/L (98-107); Glucose 97 mg/dL (70-105); Osmolality,Calculated 291 (280-300); Sodium 141 mEq/L (136-145); Troponin I < 0.03 ng/mL (< 0.04); eGFR For African Americans > 60 (> 60); eGFR For Non-African Americans > 60 (> 60)
[2022-03-08] MEDS ORDERED: 0.9 % Sodium Chloride 1,000 ML IVC ONE (13:10)
[2022-03-08 15:09] LABS: INR 4.4; Prothrombin Time 48.9 Seconds (9.4-12.1)
[2022-03-08] MEDS ORDERED: Naloxone 0.4 MG/ML INJ IVP PRN (16:18)
[2022-03-08] MEDS ORDERED: Nitroglycerin 0.4 MG TAB.SUBL SL PRN (16:20)
[2022-03-08] MEDS ORDERED: Warfarin perPT PO PRN (18:00)
[2022-03-08] MEDS: Vancomycin 1,500 MG/265 ML IV.SOLN IVPB SCH (20:59)
[2022-03-08] MEDS: Nystatin POWDER 30 GM BOTTLE TP SCH (21:00)
[2022-03-09] MEDS: Vancomycin 1,500 MG/265 ML IV.SOLN IVPB SCH ×2 (06:40→17:01)
[2022-03-09 07:51] LABS: Eosinophils % 5.4 %; Immature Granulocytes % 0.5 % (0-4)
[2022-03-09 07:52] LABS: INR 3.7; Prothrombin Time 40.9 Seconds (9.4-12.1)
[2022-03-09 07:56] LABS: Lymphocytes % 9.8 %; Mean Corpuscular Hemoglobin 15.7 pg (28.0-33.3); Red Blood Count 4.47 M/mcL (3.82-4.97)
[2022-03-09 07:58] LABS: Basophils % 0.4 %; Eosinophils # 0.4 K/mcL (0.0-0.6); Hematocrit 28.5 % (35.3-44.9); Lymphocytes # 0.8 K/mcL (0.6-4.6); Mean Corpuscular HGB Conc 24.6 g/dL (31.6-35.5); Mean Corpuscular Volume 63.8 fL (83.0-100.0); Mean Platelet Volume 9.6 fL (9.4-12.4); Monocytes # 0.7 K/mcL (0.0-1.3); Monocytes % 8.9 %; Platelet Count 319 K/mcL (140-400); Red Cell Distribution Width 24.4 % (11.5-14.5); White Blood Count 7.8 K/mcL (4.3-11.1)
[2022-03-09 07:59] LABS: Neutrophils # 5.9 K/mcL (1.6-8.9)
[2022-03-09 08:03] LABS: BUN/Creatinine Ratio 13 (6-26); Blood Urea Nitrogen 12 mg/dL (8-23); Calcium 8.5 mg/dL (8.6-10.3); Carbon Dioxide 28 mEq/L (23-29); Chloride 109 mEq/L (98-107); Glucose 76 mg/dL (70-105); Osmolality,Calculated 293 (280-300); Potassium 3.9 mEq/L (3.5-5.1); Sodium 142 mEq/L (136-145); eGFR For African Americans > 60 (> 60); eGFR For Non-African Americans 59 (> 60)
[2022-03-09 08:53] LABS: Hypochromasia Present (Not Present); Platelet Estimate Normal (Normal)
[2022-03-09 08:55] LABS: Anisocytosis 2+ (Not Present); Microcytosis Present (Not Present); Poikilocytosis 1+ (Not Present)
[2022-03-09 08:57] LABS: Polychromasia 1+ (Not Present)
[2022-03-09] MEDS: DilTIAZem CD (24hr) 240 MG CAP.ER.24H PO SCH (09:13)
[2022-03-09] MEDS: Loratadine 10 MG TABLET PO SCH (09:13)
[2022-03-09] MEDS: Furosemide 40 MG TABLET PO SCH (09:13)
[2022-03-09] MEDS: Nystatin POWDER 30 GM BOTTLE TP SCH ×2 (09:14→21:36)
[2022-03-09] MEDS ORDERED: *HR* Warfarin 1 MG TABLET PO ONE (18:00)
[2022-03-10] MEDS: Vancomycin 1,500 MG/265 ML IV.SOLN IVPB SCH (06:09)
[2022-03-10 07:04] LABS: INR 2.5; Prothrombin Time 27.4 Seconds (9.4-12.1)
[2022-03-10] MEDS: DilTIAZem CD (24hr) 240 MG CAP.ER.24H PO SCH (07:56)
[2022-03-10] MEDS: Loratadine 10 MG TABLET PO SCH (07:58)
[2022-03-10] MEDS: Furosemide 40 MG TABLET PO SCH (07:58)
[2022-03-10] MEDS: Nystatin POWDER 30 GM BOTTLE TP SCH ×2 (07:59→19:50)
[2022-03-10 08:30] LABS: Lymphocytes % 9.1 %; Mean Corpuscular Volume 64.9 fL (83.0-100.0)
[2022-03-10 08:31] LABS: Basophils % 0.3 %; Eosinophils # 0.5 K/mcL (0.0-0.6); Eosinophils % 4.9 %; Hematocrit 28.1 % (35.3-44.9); Immature Granulocytes % 0.6 % (0-4); Lymphocytes # 0.9 K/mcL (0.6-4.6); Mean Corpuscular HGB Conc 24.9 g/dL (31.6-35.5); Mean Corpuscular Hemoglobin 16.2 pg (28.0-33.3); Mean Platelet Volume 9.9 fL (9.4-12.4); Monocytes # 0.8 K/mcL (0.0-1.3); Monocytes % 8.1 %; Nucleated Red Blood Cells 0.4 /100 WBC (0); Platelet Count 326 K/mcL (140-400); Red Blood Count 4.33 M/mcL (3.82-4.97); Red Cell Distribution Width 23.9 % (11.5-14.5); White Blood Count 9.4 K/mcL (4.3-11.1)
[2022-03-10 08:35] LABS: Neutrophils # 7.2 K/mcL (1.6-8.9)
[2022-03-10 09:05] LABS: Anisocytosis 2+ (Not Present); Hypochromasia Present (Not Present); Microcytosis Present (Not Present); Platelet Estimate Normal (Normal)
[2022-03-10 09:07] LABS: Large Platelets Present (Not Present)
[2022-03-10 09:12] LABS: Calcium 8.2 mg/dL (8.6-10.3); Potassium 4.1 mEq/L (3.5-5.1)
[2022-03-10] MEDS ORDERED: Lidocaine -MPF 1% 5 ML AMPUL INFILT ONE (10:50)
[2022-03-10 14:30] LABS: % Iron Saturation 4 % (15-50); Iron 17 mcg/dL (50-170); Transferrin 335 mg/dL (203-362)
[2022-03-10 14:49] LABS: Ferritin 10 ng/mL (10-120)
[2022-03-10] MEDS ORDERED: *HR* Warfarin 2 MG TABLET PO ONE (18:00)
[2022-03-10] MEDS: Iron Sucrose Complex 250 MG in 0.9 % Sodium Chloride 250 ML IVPB SCH (21:52)
[2022-03-10] MEDS ORDERED: *HR* HYDROcodone/Acet 5/325 mg TABLET PO ONE (22:59)
[2022-03-11 05:47] LABS: Basophils % 0.4 %; Hemoglobin 6.6 g/dL (11.5-15.4); Lymphocytes % 7.4 %; Mean Corpuscular Hemoglobin 15.9 pg (28.0-33.3)
[2022-03-11 05:49] LABS: Eosinophils # 0.3 K/mcL (0.0-0.6); Eosinophils % 3.6 %; Hematocrit 27.4 % (35.3-44.9); Immature Granulocytes % 1.7 % (0-4); Lymphocytes # 0.6 K/mcL (0.6-4.6); Mean Corpuscular HGB Conc 24.1 g/dL (31.6-35.5); Mean Corpuscular Volume 65.9 fL (83.0-100.0); Mean Platelet Volume 9.5 fL (9.4-12.4); Monocytes # 0.7 K/mcL (0.0-1.3); Monocytes % 8.5 %; Neutrophils # 6.4 K/mcL (1.6-8.9); Nucleated Red Blood Cells 0.6 /100 WBC (0); Platelet Count 281 K/mcL (140-400); Red Blood Count 4.16 M/mcL (3.82-4.97); Red Cell Distribution Width 24.3 % (11.5-14.5); Segmented Neutrophils % 78.4 %; White Blood Count 8.1 K/mcL (4.3-11.1)
[2022-03-11 05:51] LABS: INR 2.1; Prothrombin Time 23.4 Seconds (9.4-12.1)
[2022-03-11 05:56] LABS: Calcium 8.2 mg/dL (8.6-10.3); Potassium 3.3 mEq/L (3.5-5.1)
[2022-03-11 06:29] LABS: Anisocytosis 1+ (Not Present); Hypochromasia Present (Not Present); Microcytosis Present (Not Present); Platelet Estimate Normal (Normal)
[2022-03-11] MEDS ORDERED: 0.9 % Sodium Chloride 500 ML IVC ONE (10:23)
[2022-03-11] MEDS ORDERED: Lidocaine Viscous Oral Soln 15 ML SOLUTION MM PRN (10:23)
[2022-03-11] MEDS: *HR* Midazolam HCl 5 MG/5 ML VIAL IVP PRN ×2 (11:00→11:25)
[2022-03-11] MEDS: *HR* FentaNYL (PF) 100 MCG/2 ML VIAL IVP PRN ×2 (11:00→11:25)
[2022-03-11] MEDS ORDERED: 0.9 % Sodium Chloride 250 ML ONE (12:07)
[2022-03-11] MEDS: Furosemide 40 MG TABLET PO SCH (12:44)
[2022-03-11] MEDS: Loratadine 10 MG TABLET PO SCH (12:44)
[2022-03-11] MEDS: DilTIAZem CD (24hr) 240 MG CAP.ER.24H PO SCH (12:44)
[2022-03-11] MEDS: Iron Sucrose Complex 250 MG in 0.9 % Sodium Chloride 250 ML IVPB SCH (12:46)
[2022-03-11] MEDS: Nystatin POWDER 30 GM BOTTLE TP SCH ×2 (12:46→20:15)
[2022-03-11] MEDS: Pantoprazole 40 MG VIAL IVP SCH ×2 (12:47→16:50)
[2022-03-11] MEDS ORDERED: Gentamicin 90 MG in 0.9 % Sodium Chloride 100 ML IVPB SCH (14:00)
[2022-03-11] MEDS: Gentamicin 90 MG in 0.9 % Sodium Chloride 100 ML IVPB SCH (17:03)
[2022-03-11] MEDS ORDERED: *HR* Warfarin 3 MG TABLET PO ONE (18:00)
[2022-03-12] MEDS: Gentamicin 90 MG in 0.9 % Sodium Chloride 100 ML IVPB SCH ×3 (01:26→18:39)
[2022-03-12] MEDS: Pantoprazole 40 MG VIAL IVP SCH ×2 (05:03→18:03)
[2022-03-12 05:48] LABS: BUN/Creatinine Ratio 11 (6-26); Blood Urea Nitrogen 12 mg/dL (8-23); Calcium 8.2 mg/dL (8.6-10.3); Carbon Dioxide 33 mEq/L (23-29); Chloride 106 mEq/L (98-107); Glucose 102 mg/dL (70-105); Osmolality,Calculated 292 (280-300); Potassium 3.3 mEq/L (3.5-5.1); Sodium 141 mEq/L (136-145); eGFR For African Americans > 60 (> 60); eGFR For Non-African Americans 51 (> 60)
[2022-03-12 05:54] LABS: Basophils % 0.2 %; Nucleated Red Blood Cells 0.4 /100 WBC (0); Red Cell Distribution Width 26.4 % (11.5-14.5)
[2022-03-12 05:57] LABS: Eosinophils # 0.5 K/mcL (0.0-0.6); Eosinophils % 5.9 %; Hematocrit 28.4 % (35.3-44.9); Hemoglobin 7.2 g/dL (11.5-15.4); Immature Granulocytes % 0.9 % (0-4); Immature Platelets 4.2 % (1.1-6.1); Lymphocytes # 0.5 K/mcL (0.6-4.6); Lymphocytes % 6.5 %; Mean Corpuscular HGB Conc 25.4 g/dL (31.6-35.5); Mean Corpuscular Hemoglobin 17.4 pg (28.0-33.3); Mean Corpuscular Volume 68.8 fL (83.0-100.0); Mean Platelet Volume 9.9 fL (9.4-12.4); Monocytes # 0.7 K/mcL (0.0-1.3); Monocytes % 8.4 %; Neutrophils # 6.3 K/mcL (1.6-8.9); Platelet Count 306 K/mcL (140-400); Red Blood Count 4.13 M/mcL (3.82-4.97); Segmented Neutrophils % 78.1 %; White Blood Count 8.1 K/mcL (4.3-11.1)
[2022-03-12 06:21] LABS: Anisocytosis 3+ (Not Present); Hypochromasia Present (Not Present); Microcytosis Present (Not Present); Platelet Estimate Normal (Normal); Poikilocytosis 1+ (Not Present); Polychromasia 1+ (Not Present); Target Cells 1+ (Not Present)
[2022-03-12] MEDS: Furosemide 40 MG TABLET PO SCH (08:01)
[2022-03-12] MEDS: Nystatin POWDER 30 GM BOTTLE TP SCH ×2 (08:29→19:48)
[2022-03-12] MEDS: Loratadine 10 MG TABLET PO SCH (08:29)
[2022-03-12] MEDS: DilTIAZem CD (24hr) 240 MG CAP.ER.24H PO SCH (08:30)
[2022-03-12] MEDS: Iron Sucrose Complex 250 MG in 0.9 % Sodium Chloride 250 ML IVPB SCH (10:32)
[2022-03-12 10:58] LABS: INR 2.4; Prothrombin Time 26.6 Seconds (9.4-12.1)
[2022-03-12] MEDS ORDERED: *HR* Warfarin 3 MG TABLET PO ONE (18:00)
[2022-03-13] MEDS: Vancomycin 1,500 MG/265 ML IV.SOLN IVPB SCH ×2 (00:34→22:16)
[2022-03-13] MEDS ORDERED: Ondansetron 4 MG/2 ML VIAL IVP ONE (01:44)
[2022-03-13 04:38] LABS: Basophils % 0.4 %; Eosinophils # 0.4 K/mcL (0.0-0.6); Eosinophils % 4.8 %; Hematocrit 32.6 % (35.3-44.9); Immature Granulocytes % 1.2 % (0-4); Immature Platelets 4.5 % (1.1-6.1); Lymphocytes # 0.6 K/mcL (0.6-4.6); Lymphocytes % 7.1 %; Mean Corpuscular HGB Conc 24.5 g/dL (31.6-35.5); Mean Corpuscular Hemoglobin 17.1 pg (28.0-33.3); Mean Corpuscular Volume 69.5 fL (83.0-100.0); Mean Platelet Volume 9.4 fL (9.4-12.4); Monocytes # 0.7 K/mcL (0.0-1.3); Monocytes % 8.2 %; Neutrophils # 6.7 K/mcL (1.6-8.9); Nucleated Red Blood Cells 0.5 /100 WBC (0); Platelet Count 268 K/mcL (140-400); Red Blood Count 4.69 M/mcL (3.82-4.97); Segmented Neutrophils % 78.3 %; White Blood Count 8.6 K/mcL (4.3-11.1)
[2022-03-13 04:41] LABS: INR 2.6; Prothrombin Time 29.2 Seconds (9.4-12.1)
[2022-03-13 04:56] LABS: Calcium 8.5 mg/dL (8.6-10.3); Potassium 3.6 mEq/L (3.5-5.1)
[2022-03-13] MEDS: Pantoprazole 40 MG VIAL IVP SCH ×2 (05:23→17:00)
[2022-03-13 05:48] LABS: Anisocytosis 3+ (Not Present); Hypochromasia Present (Not Present); Microcytosis Present (Not Present); Polychromasia 2+ (Not Present)
[2022-03-13 05:49] LABS: Platelet Estimate Normal (Normal)
[2022-03-13] MEDS: Furosemide 40 MG TABLET PO SCH (09:01)
[2022-03-13] MEDS: DilTIAZem CD (24hr) 240 MG CAP.ER.24H PO SCH (09:01)
[2022-03-13] MEDS: Nystatin POWDER 30 GM BOTTLE TP SCH ×2 (09:01→21:14)
[2022-03-13] MEDS: Loratadine 10 MG TABLET PO SCH (09:01)
[2022-03-13] MEDS: Gentamicin 120 MG in 0.9 % Sodium Chloride 100 ML IVPB SCH (09:09)
[2022-03-13] MEDS: Iron Sucrose Complex 250 MG in 0.9 % Sodium Chloride 250 ML IVPB SCH (10:13)
[2022-03-13 15:19] LABS: ABG Base Excess 5 mEq/L (-2 to 3); ABG HCO3 32 mEq/L (21-27); ABG Oxygen Saturation 85 % (95-98); ABG PCO2 62 mmHg (35-45); ABG PH 7.32 pH Units (7.32-7.45); ABG PO2 56 mmHg (85-104); ABG TCO2 34 mEq/L (20-26)
[2022-03-13] MEDS ORDERED: *HR* Warfarin 3 MG TABLET PO ONE (18:00)
[2022-03-14 02:52] LABS: Basophils % 0.4 %; Hemoglobin 7.8 g/dL (11.5-15.4); Mean Corpuscular Hemoglobin 17.4 pg (28.0-33.3); Nucleated Red Blood Cells 0.5 /100 WBC (0)
[2022-03-14 02:54] LABS: Eosinophils # 0.2 K/mcL (0.0-0.6); Eosinophils % 2.5 %; Hematocrit 31.6 % (35.3-44.9); Immature Granulocytes % 1.1 % (0-4); Immature Platelets 4.6 % (1.1-6.1); Lymphocytes # 0.7 K/mcL (0.6-4.6); Mean Corpuscular HGB Conc 24.7 g/dL (31.6-35.5); Mean Corpuscular Volume 70.5 fL (83.0-100.0); Mean Platelet Volume 9.9 fL (9.4-12.4); Monocytes # 0.6 K/mcL (0.0-1.3); Monocytes % 8.1 %; Platelet Count 284 K/mcL (140-400); Red Blood Count 4.48 M/mcL (3.82-4.97); Red Cell Distribution Width 27.6 % (11.5-14.5); Segmented Neutrophils % 78.9 %; White Blood Count 7.9 K/mcL (4.3-11.1)
[2022-03-14 03:00] LABS: INR 2.9; Prothrombin Time 32.5 Seconds (9.4-12.1)
[2022-03-14 03:02] LABS: Calcium 8.5 mg/dL (8.6-10.3); Potassium 3.7 mEq/L (3.5-5.1)
[2022-03-14 03:04] LABS: Neutrophils # 6.2 K/mcL (1.6-8.9)
[2022-03-14 03:34] LABS: Hypochromasia Present (Not Present)
[2022-03-14 03:35] LABS: Anisocytosis 3+ (Not Present); Basophilic Stippling 2+ (Not Present); Platelet Estimate Normal (Normal); Polychromasia 2+ (Not Present)
[2022-03-14] MEDS: Pantoprazole 40 MG VIAL IVP SCH ×2 (05:23→16:56)
[2022-03-14] MEDS: Loratadine 10 MG TABLET PO SCH (07:55)
[2022-03-14] MEDS: Furosemide 40 MG TABLET PO SCH (07:55)
[2022-03-14] MEDS: Iron Sucrose Complex 250 MG in 0.9 % Sodium Chloride 250 ML IVPB SCH (07:56)
[2022-03-14] MEDS: Nystatin POWDER 30 GM BOTTLE TP SCH ×2 (07:56→22:03)
[2022-03-14] MEDS: DilTIAZem CD (24hr) 240 MG CAP.ER.24H PO SCH (08:00)
[2022-03-14] MEDS: Gentamicin 120 MG in 0.9 % Sodium Chloride 100 ML IVPB SCH (10:09)
[2022-03-14] MEDS: rifAMPin 150 MG CAPSULE PO SCH (16:56)
[2022-03-14] MEDS ORDERED: *HR* Warfarin 2 MG TABLET PO ONE ×2 (18:00)
[2022-03-14] MEDS: Vancomycin 1,500 MG/265 ML IV.SOLN IVPB SCH (23:46)
[2022-03-15 04:15] VITALS: O2SAT 93
[2022-03-15 04:54] LABS: INR 3.2; Prothrombin Time 35.2 Seconds (9.4-12.1)
[2022-03-15] MEDS: Pantoprazole 40 MG VIAL IVP SCH ×2 (05:56→17:47)
[2022-03-15 07:23] VITALS: TEMP 99.1
[2022-03-15] MEDS: Furosemide 40 MG TABLET PO SCH (09:13)
[2022-03-15] MEDS: rifAMPin 150 MG CAPSULE PO SCH ×3 (09:13→17:10)
[2022-03-15] MEDS: DilTIAZem CD (24hr) 240 MG CAP.ER.24H PO SCH (09:13)
[2022-03-15] MEDS: Loratadine 10 MG TABLET PO SCH (09:13)
[2022-03-15] MEDS: Nystatin POWDER 30 GM BOTTLE TP SCH (09:32)
[2022-03-15] MEDS: Iron Sucrose Complex 250 MG in 0.9 % Sodium Chloride 250 ML IVPB SCH (09:32)
[2022-03-15] MEDS ORDERED: Gentamicin 130 MG in 0.9 % Sodium Chloride 100 ML IVPB SCH (10:00)
[2022-03-15 12:11] VITALS: BP 114/73; PULSE 91
[2022-03-15] MEDS ORDERED: *HR* Warfarin 2 MG TABLET PO ONE (18:00)
== END 2022-03-15 19:00 | DRG 315 ==
LOC: EMEROOARM 11:45 → 3NENU 11:45 → EMEROOARM 13:22 → SUATTDRO 16:03 → 3NENU 16:58
PROVIDERS: ADMIT Family Medicine; ATTEND Student in an Organized Health Care Education/Training Program